=== PATIENT | male | born 2005 | race Caucasian/White ===

== ENCOUNTER 2023-10-05 12:03 | Outpatient (OUT) | payer BC, SELFPAY ==
--- NOTE | 2023-10-05 12:18 | XR_ITS ---
[facility] [id number] Patient Name: LEVAR PORTILLO MRN: [id number] date: 2005 Sex: M Assigned Patient Location: RAD Current Patient Location: Accession/Order Number: [id number] Exam Date: 10/05/2023 12:30 Report Date: 10/08/2023 11:47 At the request of: PATTI SLAUGHTER Procedure: XR lumbar spine 2-3V EXAMINATION: XR lumbar spine 2-3V HISTORY: Lumbar Radiculopathy, M54.16 COMPARISON: No relevant comparison available. FINDINGS: BONES: Mild degenerative facet arthropathy L4-5, L5-S1. No fracture, spondylolisthesis, or bone lesion. DISC SPACES: No significant disc height narrowing, subluxation, or endplate abnormality. PARASPINOUS: Negative. No paraspinous abnormality is seen. OTHER: Negative. XR/XR lumbar spine 2-3V IMPRESSION: 1. 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 Consider MRI of lumbar spine if symptoms persist. Electronically authenticated by: ERIK LEONE Date: 10/08/2023 11:47
== END 2023-10-05 12:04 | disposition home or self-care (01) ==
LOC: RAD 12:12
PROVIDERS: PCP Family Medicine; Visit Provider Family Medicine
DX: M54.16 Radiculopathy, lumbar region (principal)
CPT/HCPCS: 72100